=== PATIENT | female | born 1940 | race American Indian/Alaskan Native ===

== ENCOUNTER 2018-08-26 17:26 | Inpatient (IN) | payer OTHER, MEDICARE ==
--- NOTE | 2018-08-26 17:37 | Emergency Department Report ---
Blank Doc - Documentation Documentation: This is a 78-year-old female that presents with GI bleed symptoms. Stated was sent by her gastro MD. This initial assessment/diagnostic orders/clinical plan/treatment(s) is/are subject to change based on patient's health status, clinical progression and re- assessment by fellow clinical providers in the ED. Further treatment and workup at subsequent clinical providers discretion. Patient/guardians urged not to elope from the ED as their condition may be serious if not clinically assessed and managed. Initial orders include: 1- Patient sent to MAIN ED for further evaluation and treatment 2- labs 3- UA
[2018-08-26 17:56] LABS: Basophils % (Auto) 0.7 % (0.0-1.8); Eosinophils # (Auto) 0.1 K/mm3 (0.0-0.4); Eosinophils % (Auto) 2.7 % (0.0-4.3); Hematocrit 27.7 % (30.3-42.9); Hemoglobin 9.2 gm/dl (10.1-14.3); Lymphocytes # (Auto) 1.1 K/mm3 (1.2-5.4); Lymphocytes % (Auto) 23.4 % (13.4-35.0); Mean Corpuscular HGB Conc 33 % (30-34); Mean Corpuscular Volume 88 fl (79-97); Monocytes # (Auto) 0.3 K/mm3 (0.0-0.8); Monocytes % (Auto) 5.4 % (0.0-7.3); Platelet Count 261 K/mm3 (140-440); Red Blood Count 3.14 M/mm3 (3.65-5.03); Red Cell Distribution Width 12.8 % (13.2-15.2)
[2018-08-26 18:08] LABS: INR 0.95 (0.87-1.13); Partial Thromboplastin Time 25.7 Sec. (24.2-36.6)
[2018-08-26 18:10] LABS: Alanine Aminotransferase 6 units/L (7-56); Albumin 3.6 g/dL (3.9-5); BUN/Creatinine Ratio 17; Blood Urea Nitrogen 26 mg/dL (7-17); Calcium 9.1 mg/dL (8.4-10.2); Hemolysis Index 6
[2018-08-26 18:11] LABS: Bilirubin,Direct < 0.2 mg/dL (0-0.2)
[2018-08-26 19:15] LABS: Bacteria,Urine 1+ /HPF (Negative); Bilirubin,Urine NEG (Negative); Blood,Urine NEG (Negative); Color,Urine Yellow (Yellow); Hyaline Casts,Urine 1 /LPF; Mucus,Urine FEW /HPF; Protein,Urine <15 mg/dL mg/dL (Negative)
--- NOTE | 2018-08-26 20:42 | Emergency Department Report ---
ED GI Bleed HPI - General Chief complaint: GI Bleed Stated complaint: GI BLEED Time Seen by Provider: 08/26/18 17:36 Source: patient, family Mode of arrival: Ambulatory Limitations: No Limitations - History of Present Illness Initial comments: This is a 78-year-old female. The patient is not known to this provider previously. The patient is sent to the emergency room by her bulk sealer operator, Dr. Renetta Sanchez for evaluation of lower GI bleed. The patient has been bleeding for approximately 4-5 days. She is not having pain at this time. As per family, the blood is copious. She takes aspirin but no other blood thinners. Last colonoscopy was in 2004. Patient family cannot recall the results of the aforementioned study. The patient denies other complaints at this time. Patient reports that she is a [employer], and reports that she does not wants blood transfusions. MD complaint: blood streaked stool, gross hematochezia -: Gradual, days(s) Radiation: none Severity scale (0 -10): 0 Quality: painless Consistency: constant Improves with: none Worsens with: none Associated Symptoms: denies: abdominal pain, nausea, vomiting, epistaxis, fever/chills, headaches, loss of appetite, malaise, easy bruising, rash, shortness of breath, syncope, weakness - Related Data Home Medications Medication Instructions Recorded Confirmed Last Taken Donepezil HCl 5 mg PO DAILY 08/26/18 08/26/18 Unknown Memantine HCl 5 mg PO BID 08/26/18 08/26/18 Unknown Methimazole 10 mg PO DAILY 08/26/18 08/26/18 Unknown Allergies Allergy/AdvReac Type Severity Reaction Status Date / Time Iodinated Contrast- Oral and Allergy Unknown Verified 08/26/18 17:43 IV Dye NSAIDS (Non-Steroidal Allergy Unknown Verified 08/26/18 17:43 Anti-Inflamma Penicillins Allergy Unknown Verified 08/26/18 17:43 ED Review of Systems ROS: Stated complaint: GI BLEED Other details as noted in HPI Constitutional: denies: fever Eyes: denies: eye discharge ENT: denies: epistaxis Respiratory: denies: cough Cardiovascular: denies: chest pain Gastrointestinal: hematochezia Genitourinary: denies: dysuria Musculoskeletal: denies: back pain Skin: denies: lesions Neurological: denies: headache Psychiatric: denies: anxiety ED Past Medical Hx - Past Medical History Previous Medical History?: Yes Additional medical history: Dementia - Surgical History Past Surgical History?: Yes Hx Appendectomy: Yes - Social History Smoking Status: Never Smoker Substance Use Type: None - Medications Home Medications: Home Medications Medication Instructions Recorded Confirmed Last Taken Type Donepezil HCl 5 mg PO DAILY 08/26/18 08/26/18 Unknown History Memantine HCl 5 mg PO BID 08/26/18 08/26/18 Unknown History Methimazole 10 mg PO DAILY 08/26/18 08/26/18 Unknown History ED Physical Exam - General Limitations: No Limitations General appearance: alert, in no apparent distress - Head Head exam: Present: atraumatic, normocephalic - Eye Eye exam: Present: normal appearance, EOMI, other (bilateral conjunctiva noted to be pale) - ENT ENT exam: Present: normal exam, normal orophraynx, mucous membranes moist, normal external ear exam - Neck Neck exam: Present: normal inspection, full ROM. Absent: tenderness, meningismus - Respiratory Respiratory exam: Present: normal lung sounds bilaterally. Absent: respiratory distress - Cardiovascular Cardiovascular Exam: Present: regular rate, normal rhythm, normal heart sounds. Absent: bradycardia, tachycardia, irregular rhythm, systolic murmur, diastolic murmur, rubs, gallop - GI/Abdominal GI/Abdominal exam: Present: soft. Absent: distended, tenderness, guarding, r ebound, rigid, pulsatile mass - Rectal Rectal exam: Present: normal inspection, heme (+) stool, bloody stool, other (Brown stool, with blood. Chaperoned by nurse Fitz Haryd) - Extremities Exam Extremities exam: Present: normal inspection, full ROM, other (2+ pulses noted in the bilateral upper, lower extremities. Compartments soft. No long bony tenderness. The pelvis is stable.). Absent: calf tenderness - Back Exam Back exam: Present: normal inspection, full ROM. Absent: tenderness, CVA tenderness (R), paraspinal tenderness, vertebral tenderness - Neurological Exam Neurological exam: Present: alert, other (Extraocular movements intact. Tongue midline. No facial droop. Facial sensation intact to light touch in the V1, V2, V3 distribution bilaterally. 5 and 5 strength in 4 extremities.. Sensation is intact to light touch in 4 extremities.). Absent: motor sensory deficit - Psychiatric Psychiatric exam: Present: normal affect, normal mood - Skin Skin exam: Present: warm, dry, intact, normal color. Absent: rash ED Course Vital Signs 08/26/18 08/26/18 08/26/18 17:36 20:02 20:46 Temperature 98 F 97.7 F Pulse Rate 88 86 74 Respiratory 18 14 18 Rate Blood Pressure 101/51 143/73 Blood Pressure 132/79 [Right] O2 Sat by Pulse 99 99 100 Oximetry 08/26/18 08/26/18 08/26/18 21:30 21:34 22:31 Temperature Pulse Rate 66 63 93 H Respiratory 8 L 11 L 11 L Rate Blood Pressure 148/70 160/72 Blood Pressure 151/64 [Right] O2 Sat by Pulse 98 100 Oximetry ED Medical Decision Making - Lab Data Result diagrams: 08/26/18 17:43 08/26/18 17:43 Vital Signs 08/26/18 08/26/18 08/26/18 17:36 20:02 20:46 Temperature 98 F 97.7 F Pulse Rate 88 86 74 Respiratory 18 14 18 Rate Blood Pressure 101/51 143/73 Blood Pressure 132/79 [Right] O2 Sat by Pulse 99 99 100 Oximetry 08/26/18 08/26/18 08/26/18 21:30 21:34 22:31 Temperature Pulse Rate 66 63 93 H Respiratory 8 L 11 L 11 L Rate Blood Pressure 148/70 160/72 Blood Pressure 151/64 [Right] O2 Sat by Pulse 98 100 Oximetry Lab Results 08/26/18 08/26/18 08/26/18 Range/Units 17:43 17:43 17:43 WBC 4.8 (4.5-11.0) K/mm3 RBC 3.14 L (3.65-5.03) M/mm3 Hgb 9.2 L (10.1-14.3) gm/dl Hct 27.7 L (30.3-42.9) % MCV 88 (79-97) fl MCH 29 (28-32) pg MCHC 33 (30-34) % RDW 12.8 L (13.2-15.2) % Plt Count 261 (140-440) K/mm3 Lymph % (Auto) 23.4 (13.4-35.0) % [place] % (Auto) 5.4 (0.0-7.3) % Eos % (Auto) 2.7 (0.0-4.3) % Baso % (Auto) 0.7 (0.0-1.8) % Lymph # 1.1 L (1.2-5.4) K/mm3 [place] # 0.3 (0.0-0.8) K/mm3 Eos # 0.1 (0.0-0.4) K/mm3 Baso # 0.0 (0.0-0.1) K/mm3 Seg Neutrophils % 67.8 (40.0-70.0) % Seg Neutrophils # 3.3 (1.8-7.7) K/mm3 PT 13.3 (12.2-14.9) Sec. INR 0.95 (0.87-1.13) APTT 25.7 (24.2-36.6) Sec. Sodium 141 (137-145) mmol/L Potassium 4.3 (3.6-5.0) mmol/L Chloride 104.8 (98-107) mmol/L Carbon Dioxide 25 (22-30) mmol/L Anion Gap 16 mmol/L BUN 26 H (7-17) mg/dL Creatinine 1.5 H (0.7-1.2) mg/dL Estimated GFR 34 ml/min BUN/Creatinine Ratio 17 % Glucose 122 H (65-100) mg/dL Calcium 9.1 (8.4-10.2) mg/dL Total Bilirubin 0.30 (0.1-1.2) mg/dL Direct Bilirubin < 0.2 (0-0.2) mg/dL Indirect Bilirubin 0.1 mg/dL AST 10 (5-40) units/L ALT 6 L (7-56) units/L Alkaline Phosphatase 58 (35-129) units/L Total Protein 6.4 (6.3-8.2) g/dL Albumin 3.6 L (3.9-5) g/dL Albumin/Globulin Ratio 1.3 % Lipase 39 (13-60) units/L Urine Color (Yellow) Urine Turbidity (Clear) Urine pH (5.0-7.0) Ur Specific [place] (1.003-1.030) Urine Protein (Negative) mg/dL Urine Glucose (UA) (Negative) mg/dL Urine Ketones (Negative) mg/dL Urine Blood (Negative) Urine Nitrite (Negative) Urine Bilirubin (Negative) Urine Urobilinogen (<2.0) mg/dL Ur Leukocyte Esterase (Negative) Urine WBC (Auto) (0.0-6.0) /HPF Urine RBC (Auto) (0.0-6.0) /HPF U Epithel Cells (Auto) (0-13.0) /HPF Urine Bacteria (Auto) (Negative) /HPF Hyaline Casts /LPF Urine Mucus /HPF Blood Type Antibody Screen 08/26/18 08/26/18 Range/Units 17:45 18:06 WBC (4.5-11.0) K/mm3 RBC (3.65-5.03) M/mm3 Hgb (10.1-14.3) gm/dl Hct (30.3-42.9) % MCV (79-97) fl MCH (28-32) pg MCHC (30-34) % RDW (13.2-15.2) % Plt Count (140-440) K/mm3 Lymph % (Auto) (13.4-35.0) % [place] % (Auto) (0.0-7.3) % Eos % (Auto) (0.0-4.3) % Baso % (Auto) (0.0-1.8) % Lymph # (1.2-5.4) K/mm3 [place] # (0.0-0.8) K/mm3 Eos # (0.0-0.4) K/mm3 Baso # (0.0-0.1) K/mm3 Seg Neutrophils % (40.0-70.0) % Seg Neutrophils # (1.8-7.7) K/mm3 PT (12.2-14.9) Sec. INR (0.87-1.13) APTT (24.2-36.6) Sec. Sodium (137-145) mmol/L Potassium (3.6-5.0) mmol/L Chloride (98-107) mmol/L Carbon Dioxide (22-30) mmol/L Anion Gap mmol/L BUN (7-17) mg/dL Creatinine (0.7-1.2) mg/dL Estimated GFR ml/min BUN/Creatinine Ratio % Glucose (65-100) mg/dL Calcium (8.4-10.2) mg/dL Total Bilirubin (0.1-1.2) mg/dL Direct Bilirubin (0-0.2) mg/dL Indirect Bilirubin mg/dL AST (5-40) units/L ALT (7-56) units/L Alkaline Phosphatase (35-129) units/L Total Protein (6.3-8.2) g/dL Albumin (3.9-5) g/dL Albumin/Globulin Ratio % Lipase (13-60) units/L Urine Color Yellow (Yellow) Urine Turbidity Clear (Clear) Urine pH 5.0 (5.0-7.0) Ur Specific [place] 1.033 H (1.003-1.030) Urine Protein <15 mg/dl (Negative) mg/dL Urine Glucose (UA) Neg (Negative) mg/dL Urine Ketones Neg (Negative) mg/dL Urine Blood Neg (Negative) Urine Nitrite Neg (Negative) Urine Bilirubin Neg (Negative) Urine Urobilinogen 2.0 (<2.0) mg/dL Ur Leukocyte Esterase Sm (Negative) Urine WBC (Auto) 3.0 (0.0-6.0) /HPF Urine RBC (Auto) 7.0 (0.0-6.0) /HPF U Epithel Cells (Auto) 3.0 (0-13.0) /HPF Urine Bacteria (Auto) 1+ (Negative) /HPF Hyaline Casts 1 /LPF Urine Mucus Few /HPF Blood Type B POSITIVE Antibody Screen Negative - EKG Data -: EKG Interpreted by Nm EKG shows normal: sinus rhythm Rate: normal - EKG Data When compared to previous EKG there are: previous EKG unavailable 08/26/18 23:37 EKG shows a sinus rhythm, left axis deviation, left anterior fascicular block, left ventricular hypertrophy, QTC prolonged, borderline first-degree AV block. This is an abnormal EKG. The patient is not having chest pain. This is not consistent with ST elevation myocardial infarction. - Medical Decision Making Differential diagnosis, including not limited to: Diverticulosis, ang iodysplasia, malignancy, hemorrhoidal bleeding Assessment and plan: 78-year-old female hemodynamically stable with painless rectal bleeding. Found to have incidental mild renal insufficiency. May be dehydration, vasomotor nephropathy. Contacted covering bulk sealer operator for Dr Nathalie Sapp He states his group does not have privileges at this hospital, and he recommends contacting the on-call gastroenterology group for evaluation. Discussed this with our covering bulk sealer operator, Dr. Manning, and she states that she is willing to see the patient in consultation. Recommends no GoLYTELY or bowel prep at this time, as she would like to evaluate the patient. Discussed admission with the patient and family, who verbalized understanding, and who are amenable to hospitalization. The case is presented to the Hospital physician, Dr. Vail, who has accepted the patient to the medical service. Critical care attestation.: If time is entered above; I have spent that time in minutes in the direct care of this critically ill patient, excluding procedure time. ED Disposition Clinical Impression: Lower GI bleed Disposition: DC-09 OP ADMIT IP TO THIS HOSP Is pt being admited?: Yes Does the pt Need Aspirin: No Condition: Good
[2018-08-26] MEDS ORDERED: NACL 0.9% 1000 ML 1,000 ML IV ONE (21:03)
--- NOTE | 2018-08-26 22:24 | History and Physical Report ---
History of Present Illness Date of examination: 08/26/18 History of present illness: 78-year-old woman history of hypothyroidism, dementia comes emergency room with complaints of rectal bleed, 1-2 episodes a day over the last 5 days. One month ago she had similar symptoms, she saw Dr. Diaz who sent her for cardiac clearance prior to performing colonoscopy, patient was scheduled to have colonoscopy this upcoming week. No abdominal pain Review of systems Constitutional: no weight loss, chills, fever Ears, eyes, nose, mouth and throat: no nasal congestion, no nasal discharge, no sinus pressure, no vision change, no red eye. Neck: No neck pain or rigidity. Cardiovascular: no palpitations, chest pain Respiratory: no cough, shortness of breath Gastrointestinal: no abdominal pain Genitourinary : no frequency , no hematuria Musculoskeletal: no joint swelling or muscle ache Integumentary: no rash, no pruritis Neurological: no parathesias, no focal weakness Endocrine: no cold or heat intolerance, no polyuria or polydipsia Hematologic/Lymphatic: no easy bruising, no easy bleeding, no gland swelling Allergic/Immunologic: no urticaria, no angioedema. PAST MEDICAL HISTORY: hypothyroidism, dementia PAST SURGICAL HISTORY: Appendicectomy, vein removal SOCIAL HISTORY: Denies alcohol, drugs, tobacco FAMILY HISTORY: Hypertension Medications and Allergies Allergies Allergy/AdvReac Type Severity Reaction Status Date / Time Iodinated Contrast- Oral and Allergy Unknown Verified 08/26/18 17:43 IV Dye NSAIDS (Non-Steroidal Allergy Unknown Verified 08/26/18 17:43 Anti-Inflamma Penicillins Allergy Unknown Verified 08/26/18 17:43 Home Medications Medication Instructions Recorded Confirmed Last Taken Type Donepezil HCl 5 mg PO DAILY 08/26/18 08/26/18 Unknown History Memantine HCl 5 mg PO BID 08/26/18 08/26/18 Unknown History Methimazole 10 mg PO DAILY 08/26/18 08/26/18 Unknown History Exam - Physical Exam Narrative exam: General Apperance: The patient lying in bed, breathing comfortable HEENT: Normocephalic, atraumatic. Pupils equally round and reactive to light, EOMI, no sclericterus or JVD or thyromegaly or nodule. , no carotid bruit, mucous membranes moist, no exudate or erythema Heart: S1-S2, regular is rhythm Lungs: Clear to auscultation bilaterally, breathing comfortable Abdomen: Positive bowel sounds, soft, nontender, nondistended, no organomegaly Extremities: No edema cyanosis clubbing Skin: no rash, nodule, warm and dry Neuro: cranial nerves 2-12 intact, speech is fluent, motor/sensory intact - Constitutional Vitals: Temp Pulse Resp BP Pulse Ox 97.7 F 63 11 L 151/64 98 08/26/18 20:02 08/26/18 21:34 08/26/18 21:34 08/26/18 21:34 08/26/18 21:34 Results - Labs CBC & Chem 7: 08/26/18 17:43 08/26/18 17:43 Labs: Abnormal lab results 08/26/18 08/26/18 08/26/18 Range/Units 17:43 17:43 18:06 RBC 3.14 L (3.65-5.03) M/mm3 Hgb 9.2 L (10.1-14.3) gm/dl Hct 27.7 L (30.3-42.9) % RDW 12.8 L (13.2-15.2) % Lymph # 1.1 L (1.2-5.4) K/mm3 BUN 26 H (7-17) mg/dL Creatinine 1.5 H (0.7-1.2) mg/dL Glucose 122 H (65-100) mg/dL ALT 6 L (7-56) units/L Albumin 3.6 L (3.9-5) g/dL Ur Specific [place] 1.033 H (1.003-1.030) Assessment and Plan Assessment Lower GI bleed, rule out diverticular bleed Hypothyroidism Dementia Plan Admit to medicine Start IV fluids, check serial hemoglobin, and consult GI DVT prophylaxis
[2018-08-26] MEDS ORDERED: SODIUM CHLORIDE FLUSH SYRINGE 10 ML IV PRN (23:08)
[2018-08-26] MEDS ORDERED: TYLENOL PO PRN (23:08)
[2018-08-26] MEDS ORDERED: ZOFRAN IV PRN (23:08)
[2018-08-26 23:54] LABS: Hematocrit 26.1 % (30.3-42.9); Hemoglobin 9.1 gm/dl (10.1-14.3)
[2018-08-27] MEDS: NACL 0.9% 1000 ML 1,000 ML IV SCH ×3 (02:49→21:49)
[2018-08-27 02:53] LABS: Eosinophils # (Auto) 0.2 K/mm3 (0.0-0.4); Eosinophils % (Auto) 4.9 % (0.0-4.3); Hematocrit 25.3 % (30.3-42.9); Hemoglobin 8.3 gm/dl (10.1-14.3); Lymphocytes # (Auto) 1.1 K/mm3 (1.2-5.4); Lymphocytes % (Auto) 25.6 % (13.4-35.0); Mean Corpuscular HGB Conc 33 % (30-34); Mean Corpuscular Volume 88 fl (79-97); Monocytes # (Auto) 0.3 K/mm3 (0.0-0.8); Monocytes % (Auto) 8.1 % (0.0-7.3); Platelet Count 226 K/mm3 (140-440); Red Blood Count 2.86 M/mm3 (3.65-5.03); Red Cell Distribution Width 13.1 % (13.2-15.2)
[2018-08-27 03:33] LABS: Calcium 8.6 mg/dL (8.4-10.2)
[2018-08-27 07:23] LABS: Hematocrit 26.4 % (30.3-42.9); Hemoglobin 8.8 gm/dl (10.1-14.3)
[2018-08-27] MEDS: SODIUM CHLORIDE FLUSH SYRINGE 10 ML IV SCH ×2 (09:35→21:50)
[2018-08-27] MEDS ORDERED: GOLYTELY PO NR ×2 (10:00→17:00)
--- NOTE | 2018-08-27 10:22 | Gastroenterology Consultation ---
<LOBO PAIGE - Last Filed: 08/27/18 10:24> History of Present Illness - Reason for Consult Consult date: 08/27/18 GI bleed Requesting physician: ANUP AGUILAR - History of Present Illness Patent is a 78 female with PMH of hypothyroidism and dementia who was sent to ED by her laminator hand Dr. Sanchez for evaluation of rectal bleeding. This morning patient was sitting up in bed finishing breakfast w/o acute distress and son at bedside. She reports rectal bleeding with bright red blood x 5 days with bleeding being moderate in amount initially but then gradually decreased with now no further bleeding overnight or this am. Denies fever, CP, SOB, wt loss, abd pain, N/V, hematemesis, melena, diarrhea, or constipation. Takes daily ASA at home. No hx of PUD or liver disease. Patient is previously known to our service and underwent a colonoscopy in 2014 for wt loss by Dr. Veliz that showed diverticulosis throughout entire colon, recto-sigmoid polyp, and non-bleeding hemorrhoids. Past History Past Medical History: other (as per HPI) Past Surgical History: appendectomy, Other ( vein removal) Social history: denies: smoking, alcohol abuse Family history: hypertension, other (colon polyps, colon cancer?) Medications and Allergies Allergies Allergy/AdvReac Type Severity Reaction Status Date / Time Iodinated Contrast- Oral and Allergy Unknown Verified 08/26/18 17:43 IV Dye NSAIDS (Non-Steroidal Allergy Unknown Verified 08/26/18 17:43 Anti-Inflamma Penicillins Allergy Unknown Verified 08/26/18 17:43 Home Medications Medication Instructions Recorded Confirmed Last Taken Type Donepezil HCl 5 mg PO DAILY 08/26/18 08/26/18 Unknown History Memantine HCl 5 mg PO BID 08/26/18 08/26/18 Unknown History Methimazole 10 mg PO DAILY 08/26/18 08/26/18 Unknown History Active Meds: Active Medications Acetaminophen (Tylenol) 650 mg PO Q4H PRN PRN Reason: Pain MILD(1-3)/Fever >100.5/EDUARDO Sodium Chloride (Nacl 0.9% 1000 Ml) 1,000 mls @ 100 mls/hr IV DIRECT [facility] Last Admin: 08/27/18 02:49 Dose: 100 mls/hr Documented by: Ondansetron HCl (Zofran) 4 mg IV Q8H PRN PRN Reason: Nausea And Vomiting Polyethylene Glycol/Electrolytes (Golytely) 4,000 ml PO ONCE NR Stop: 08/27/18 16:00 Sodium Chloride (Sodium Chloride Flush Syringe 10 Ml) 10 ml IV BID [facility] Last Admin: 08/27/18 09:35 Dose: 10 ml Documented by: Sodium Chloride (Sodium Chloride Flush Syringe 10 Ml) 10 ml IV PRN PRN PRN Reason: LINE FLUSH medications reviewed/updated as required Review of Systems - Review of Systems All systems: negative Gastrointestinal: hematochezia Exam - Constitutional Vital Signs: Temp Pulse Resp BP Pulse Ox 98.3 F 82 11 L 139/65 95 08/27/18 08:00 08/27/18 09:30 08/27/18 09:30 08/27/18 09:30 08/27/18 09:30 General appearance: no acute distress - Respiratory Respiratory: bilateral: CTA - Cardiovascular Rhythm: regular - Gastrointestinal General gastrointestinal: Present: soft, non-tender, non-distended, normal bowel sounds - Labs CBC & Chem 7: 08/27/18 07:07 08/27/18 02:33 Lab Results: Laboratory Results - last 24 hr 08/26/18 08/26/18 08/26/18 17:43 17:43 17:43 WBC 4.8 RBC 3.14 L Hgb 9.2 L Hct 27.7 L MCV 88 MCH 29 MCHC 33 RDW 12.8 L Plt Count 261 Lymph % (Auto) 23.4 [place] % (Auto) 5.4 Eos % (Auto) 2.7 Baso % (Auto) 0.7 Lymph # 1.1 L [place] # 0.3 Eos # 0.1 Baso # 0.0 Seg Neutrophils % 67.8 Seg Neutrophils # 3.3 PT 13.3 INR 0.95 APTT 25.7 Sodium 141 Potassium 4.3 Chloride 104.8 Carbon Dioxide 25 Anion Gap 16 BUN 26 H Creatinine 1.5 H Estimated GFR 34 BUN/Creatinine Ratio 17 Glucose 122 H Calcium 9.1 Total Bilirubin 0.30 Direct Bilirubin < 0.2 Indirect Bilirubin 0.1 AST 10 ALT 6 L Alkaline Phosphatase 58 Total Protein 6.4 Albumin 3.6 L Albumin/Globulin Ratio 1.3 Lipase 39 Urine Color Urine Turbidity Urine pH Ur Specific [place] Urine Protein Urine Glucose (UA) Urine Ketones Urine Blood Urine Nitrite Urine Bilirubin Urine Urobilinogen Ur Leukocyte Esterase Urine WBC (Auto) Urine RBC (Auto) U Epithel Cells (Auto) Urine Bacteria (Auto) Hyaline Casts Urine Mucus Blood Type Antibody Screen 08/26/18 08/26/18 08/26/18 17:45 18:06 23:35 WBC RBC Hgb 9.1 L Hct 26.1 L MCV MCH MCHC RDW Plt Count Lymph % (Auto) [place] % (Auto) Eos % (Auto) Baso % (Auto) Lymph # [place] # Eos # Baso # Seg Neutrophils % Seg Neutrophils # PT INR APTT Sodium Potassium Chloride Carbon Dioxide Anion Gap BUN Creatinine Estimated GFR BUN/Creatinine Ratio Glucose Calcium Total Bilirubin Direct Bilirubin Indirect Bilirubin AST ALT Alkaline Phosphatase Total Protein Albumin Albumin/Globulin Ratio Lipase Urine Color Yellow Urine Turbidity Clear Urine pH 5.0 Ur Specific [place] 1.033 H Urine Protein <15 mg/dl Urine Glucose (UA) Neg Urine Ketones Neg Urine Blood Neg Urine Nitrite Neg Urine Bilirubin Neg Urine Urobilinogen 2.0 Ur Leukocyte Esterase Sm Urine WBC (Auto) 3.0 Urine RBC (Auto) 7.0 U Epithel Cells (Auto) 3.0 Urine Bacteria (Auto) 1+ Hyaline Casts 1 Urine Mucus Few Blood Type B POSITIVE Antibody Screen Negative 08/27/18 08/27/18 08/27/18 02:33 02:33 07:07 WBC 4.1 L RBC 2.86 L Hgb 8.3 L 8.8 L Hct 25.3 L 26.4 L MCV 88 MCH 29 MCHC 33 RDW 13.1 L Plt Count 226 Lymph % (Auto) 25.6 [place] % (Auto) 8.1 H Eos % (Auto) 4.9 H Baso % (Auto) 1.0 Lymph # 1.1 L [place] # 0.3 Eos # 0.2 Baso # 0.0 Seg Neutrophils % 60.4 Seg Neutrophils # 2.5 PT INR APTT Sodium 142 Potassium 3.9 Chloride 108.4 H Carbon Dioxide 24 Anion Gap 14 BUN 22 H Creatinine 1.2 Estimated GFR 53 BUN/Creatinine Ratio 18 Glucose 95 Calcium 8.6 Total Bilirubin Direct Bilirubin Indirect Bilirubin AST ALT Alkaline Phosphatase Total Protein Albumin Albumin/Globulin Ratio Lipase Urine Color Urine Turbidity Urine pH Ur Specific [place] Urine Protein Urine Glucose (UA) Urine Ketones Urine Blood Urine Nitrite Urine Bilirubin Urine Urobilinogen Ur Leukocyte Esterase Urine WBC (Auto) Urine RBC (Auto) U Epithel Cells (Auto) Urine Bacteria (Auto) Hyaline Casts Urine Mucus Blood Type Antibody Screen Assessment and Plan 1.hematochezia -INR 0.95 -H/H 8.8/26.4-trending down -continue to monitor H/H transfuse as needed -hold blood thinning medications -patient reports acute onset of rectal bleeding with a moderate amount of bright red blood that has gradually decreased in amount over the past 5 days. No active signs of bleeding overnight or this am. No abd pain, melena, or hematemesis. -last colonoscopy in [address] Veliz showed diverticulosis throughout entire colon, recto-sigmoid polyp, and non-bleeding hemorrhoids. -etiology-most likely diverticular in nature -will schedule for colonoscopy tomorrow for further evaluation to r/o other causes -clear liquids today, then NPO after MN -continue PPI and supportive care -if overt bleeding develops, recommend stat CTA vs bleeding scan -will follow <SIDDHARTH MANRIQUEZ - Last Filed: 08/27/18 17:05> Medications and Allergies Active Meds: Active Medications Acetaminophen (Tylenol) 650 mg PO Q4H PRN PRN Reason: Pain MILD(1-3)/Fever >100.5/EDUARDO Sodium Chloride (Nacl 0.9% 1000 Ml) 1,000 mls @ 100 mls/hr IV DIRECT [facility] Last Admin: 08/27/18 11:47 Dose: 100 mls/hr Documented by: Ondansetron HCl (Zofran) 4 mg IV Q8H PRN PRN Reason: Nausea And Vomiting Polyethylene Glycol/Electrolytes (Golytely) 4,000 ml PO ONCE NR Stop: 08/27/18 21:00 Last Admin: 08/27/18 16:58 Dose: 4,000 ml Documented by: Sodium Chloride (Sodium Chloride Flush Syringe 10 Ml) 10 ml IV BID [facility] Last Admin: 08/27/18 09:35 Dose: 10 ml Documented by: Sodium Chloride (Sodium Chloride Flush Syringe 10 Ml) 10 ml IV PRN PRN PRN Reason: LINE FLUSH Exam - Constitutional Vital Signs: Temp Pulse Resp BP Pulse Ox 98.2 F 56 L 16 139/52 98 08/27/18 16:00 08/27/18 16:00 08/27/18 16:00 08/27/18 13:50 08/27/18 16:00 - Labs CBC & Chem 7: 08/27/18 10:59 08/27/18 02:33 Lab Results: Laboratory Results - last 24 hr 08/26/18 08/26/18 08/26/18 17:43 17:43 17:43 WBC 4.8 RBC 3.14 L Hgb 9.2 L Hct 27.7 L MCV 88 MCH 29 MCHC 33 RDW 12.8 L Plt Count 261 Lymph % (Auto) 23.4 [place] % (Auto) 5.4 Eos % (Auto) 2.7 Baso % (Auto) 0.7 Lymph # 1.1 L [place] # 0.3 Eos # 0.1 Baso # 0.0 Seg Neutrophils % 67.8 Seg Neutrophils # 3.3 PT 13.3 INR 0.95 APTT 25.7 Sodium 141 Potassium 4.3 Chloride 104.8 Carbon Dioxide 25 Anion Gap 16 BUN 26 H Creatinine 1.5 H Estimated GFR 34 BUN/Creatinine Ratio 17 Glucose 122 H Calcium 9.1 Total Bilirubin 0.30 Direct Bilirubin < 0.2 Indirect Bilirubin 0.1 AST 10 ALT 6 L Alkaline Phosphatase 58 Total Protein 6.4 Albumin 3.6 L Albumin/Globulin Ratio 1.3 Lipase 39 Urine Color Urine Turbidity Urine pH Ur Specific [place] Urine Protein Urine Glucose (UA) Urine Ketones Urine Blood Urine Nitrite Urine Bilirubin Urine Urobilinogen Ur Leukocyte Esterase Urine WBC (Auto) Urine RBC (Auto) U Epithel Cells (Auto) Urine Bacteria (Auto) Hyaline Casts Urine Mucus Blood Type Antibody Screen 08/26/18 08/26/18 08/26/18 17:45 18:06 23:35 WBC RBC Hgb 9.1 L Hct 26.1 L MCV MCH MCHC RDW Plt Count Lymph % (Auto) [place] % (Auto) Eos % (Auto) Baso % (Auto) Lymph # [place] # Eos # Baso # Seg Neutrophils % Seg Neutrophils # PT INR APTT Sodium Potassium Chloride Carbon Dioxide Anion Gap BUN Creatinine Estimated GFR BUN/Creatinine Ratio Glucose Calcium Total Bilirubin Direct Bilirubin Indirect Bilirubin AST ALT Alkaline Phosphatase Total Protein Albumin Albumin/Globulin Ratio Lipase Urine Color Yellow Urine Turbidity Clear Urine pH 5.0 Ur Specific [place] 1.033 H Urine Protein <15 mg/dl Urine Glucose (UA) Neg Urine Ketones Neg Urine Blood Neg Urine Nitrite Neg Urine Bilirubin Neg Urine Urobilinogen 2.0 Ur Leukocyte Esterase Sm Urine WBC (Auto) 3.0 Urine RBC (Auto) 7.0 U Epithel Cells (Auto) 3.0 Urine Bacteria (Auto) 1+ Hyaline Casts 1 Urine Mucus Few Blood Type B POSITIVE Antibody Screen Negative 08/27/18 08/27/18 08/27/18 02:33 02:33 07:07 WBC 4.1 L RBC 2.86 L Hgb 8.3 L 8.8 L Hct 25.3 L 26.4 L MCV 88 MCH 29 MCHC 33 RDW 13.1 L Plt Count 226 Lymph % (Auto) 25.6 [place] % (Auto) 8.1 H Eos % (Auto) 4.9 H Baso % (Auto) 1.0 Lymph # 1.1 L [place] # 0.3 Eos # 0.2 Baso # 0.0 Seg Neutrophils % 60.4 Seg Neutrophils # 2.5 PT INR APTT Sodium 142 Potassium 3.9 Chloride 108.4 H Carbon Dioxide 24 Anion Gap 14 BUN 22 H Creatinine 1.2 Estimated GFR 53 BUN/Creatinine Ratio 18 Glucose 95 Calcium 8.6 Total Bilirubin Direct Bilirubin Indirect Bilirubin AST ALT Alkaline Phosphatase Total Protein Albumin Albumin/Globulin Ratio Lipase Urine Color Urine Turbidity Urine pH Ur Specific [place] Urine Protein Urine Glucose (UA) Urine Ketones Urine Blood Urine Nitrite Urine Bilirubin Urine Urobilinogen Ur Leukocyte Esterase Urine WBC (Auto) Urine RBC (Auto) U Epithel Cells (Auto) Urine Bacteria (Auto) Hyaline Casts Urine Mucus Blood Type Antibody Screen 08/27/18 10:59 WBC RBC Hgb 9.1 L Hct 27.2 L MCV MCH MCHC RDW Plt Count Lymph % (Auto) [place] % (Auto) Eos % (Auto) Baso % (Auto) Lymph # [place] # Eos # Baso # Seg Neutrophils % Seg Neutrophils # PT INR APTT Sodium Potassium Chloride Carbon Dioxide Anion Gap BUN Creatinine Estimated GFR BUN/Creatinine Ratio Glucose Calcium Total Bilirubin Direct Bilirubin Indirect Bilirubin AST ALT Alkaline Phosphatase Total Protein Albumin Albumin/Globulin Ratio Lipase Urine Color Urine Turbidity Urine pH Ur Specific [place] Urine Protein Urine Glucose (UA) Urine Ketones Urine Blood Urine Nitrite Urine Bilirubin Urine Urobilinogen Ur Leukocyte Esterase Urine WBC (Auto) Urine RBC (Auto) U Epithel Cells (Auto) Urine Bacteria (Auto) Hyaline Casts Urine Mucus Blood Type Antibody Screen Assessment and Plan Patient seen and examined. Agree with note above. Will plan for colonoscopy tomorrow. rest as above.
[2018-08-27 11:50] LABS: Hematocrit 27.2 % (30.3-42.9); Hemoglobin 9.1 gm/dl (10.1-14.3)
--- NOTE | 2018-08-27 16:49 | Progress Note ---
Assessment and Plan Assessment and plan: 78-year-old woman history of hypothyroidism, dementia comes emergency room with complaints of rectal bleed, 1-2 episodes a day over the last 5 days. One month ago she had similar symptoms, she saw Dr. Diaz who sent her for cardiac clearance prior to performing colonoscopy, patient was scheduled to have colonoscopy this upcoming week. No abdominal pain. last colonoscopy in [address] Veliz showed diverticulosis throughout entire colon, recto-sigmoid polyp, and non-bleeding hemorrhoids. Lower GI bleed, rule out diverticular bleed Hypothyroidism Dementia Plan Continue supportive care at [facility] GI input noted Continue IV fluids, PPI, check serial hemoglobin, and hold all anticoauglants and antiplatelet NPO after midnight and per GI-if overt bleeding develops, recommend stat CTA vs bleeding scan DVT prophylaxis Plan discussed with patient and family History Interval history: Pateint seen and examined, resting comfortable in no acute distress. no further bleed noted. family at bedside Hospitalist Physical - Constitutional Vitals: Temp Pulse Resp BP Pulse Ox 98.2 F 56 L 16 139/52 98 08/27/18 16:00 08/27/18 16:00 08/27/18 16:00 08/27/18 13:50 08/27/18 16:00 General appearance: Present: no acute distress, well-nourished - EENT Eyes: Present: PERRL, EOM intact ENT: hearing intact, clear oral mucosa, dentition normal - Neck Neck: Present: supple, normal ROM - Respiratory Respiratory effort: normal Respiratory: bilateral: CTA - Cardiovascular Rhythm: regular Heart Sounds: Present: S1 & S2. Absent: systolic murmur, diastolic murmur - Extremities Extremities: no ischemia, pulses intact, pulses symmetrical, No edema, normal temperature, normal color, Full ROM Peripheral Pulses: within normal limits - Abdominal General gastrointestinal: soft, non-tender, non-distended, normal bowel sounds - Integumentary Integumentary: Present: clear, warm, dry, normal turgor - Psychiatric Psychiatric: appropriate mood/affect, intact judgment & insight, cooperative - Neurologic Neurologic: CNII-XII intact, moves all extremities - Allied Health Allied health notes reviewed: nursing Results - Labs CBC & Chem 7: 08/28/18 05:14 08/28/18 05:14 Labs: Laboratory Last Values WBC 4.1 K/mm3 (4.5-11.0) L 08/27/18 02:33 RBC 2.86 M/mm3 (3.65-5.03) L 08/27/18 02:33 Hgb 9.1 gm/dl (10.1-14.3) L 08/27/18 10:59 Hct 27.2 % (30.3-42.9) L 08/27/18 10:59 MCV 88 fl (79-97) 08/27/18 02:33 MCH 29 pg (28-32) 08/27/18 02:33 MCHC 33 % (30-34) 08/27/18 02:33 RDW 13.1 % (13.2-15.2) L 08/27/18 02:33 Plt Count 226 K/mm3 (140-440) 08/27/18 02:33 Lymph % (Auto) 25.6 % (13.4-35.0) 08/27/18 02:33 [place] % (Auto) 8.1 % (0.0-7.3) H 08/27/18 02:33 Eos % (Auto) 4.9 % (0.0-4.3) H 08/27/18 02:33 Baso % (Auto) 1.0 % (0.0-1.8) 08/27/18 02:33 Lymph # 1.1 K/mm3 (1.2-5.4) L 08/27/18 02:33 [place] # 0.3 K/mm3 (0.0-0.8) 08/27/18 02:33 Eos # 0.2 K/mm3 (0.0-0.4) 08/27/18 02:33 Baso # 0.0 K/mm3 (0.0-0.1) 08/27/18 02:33 Seg Neutrophils % 60.4 % (40.0-70.0) 08/27/18 02:33 Seg Neutrophils # 2.5 K/mm3 (1.8-7.7) 08/27/18 02:33 PT 13.3 Sec. (12.2-14.9) 08/26/18 17:43 INR 0.95 (0.87-1.13) 08/26/18 17:43 APTT 25.7 Sec. (24.2-36.6) 08/26/18 17:43 Sodium 142 mmol/L (137-145) 08/27/18 02:33 Potassium 3.9 mmol/L (3.6-5.0) 08/27/18 02:33 Chloride 108.4 mmol/L (98-107) H 08/27/18 02:33 Carbon Dioxide 24 mmol/L (22-30) 08/27/18 02:33 Anion Gap 14 mmol/L 08/27/18 02:33 BUN 22 mg/dL (7-17) H 08/27/18 02:33 Creatinine 1.2 mg/dL (0.7-1.2) 08/27/18 02:33 Estimated GFR 53 ml/min 08/27/18 02:33 BUN/Creatinine Ratio 18 % 08/27/18 02:33 Glucose 95 mg/dL (65-100) 08/27/18 02:33 Calcium 8.6 mg/dL (8.4-10.2) 08/27/18 02:33 Total Bilirubin 0.30 mg/dL (0.1-1.2) 08/26/18 17:43 Direct Bilirubin < 0.2 mg/dL (0-0.2) 08/26/18 17:43 Indirect Bilirubin 0.1 mg/dL 08/26/18 17:43 AST 10 units/L (5-40) 08/26/18 17:43 ALT 6 units/L (7-56) L 08/26/18 17:43 Alkaline Phosphatase 58 units/L (35-129) 08/26/18 17:43 Total Protein 6.4 g/dL (6.3-8.2) 08/26/18 17:43 Albumin 3.6 g/dL (3.9-5) L 08/26/18 17:43 Albumin/Globulin Ratio 1.3 % 08/26/18 17:43 Lipase 39 units/L (13-60) 08/26/18 17:43 Urine Color Yellow (Yellow) 08/26/18 18:06 Urine Turbidity Clear (Clear) 08/26/18 18:06 Urine pH 5.0 (5.0-7.0) 08/26/18 18:06 Ur Specific [place] 1.033 (1.003-1.030) H 08/26/18 18:06 Urine Protein <15 mg/dl mg/dL (Negative) 08/26/18 18:06 Urine Glucose (UA) Neg mg/dL (Negative) 08/26/18 18:06 Urine Ketones Neg mg/dL (Negative) 08/26/18 18:06 Urine Blood Neg (Negative) 08/26/18 18:06 Urine Nitrite Neg (Negative) 08/26/18 18:06 Urine Bilirubin Neg (Negative) 08/26/18 18:06 Urine Urobilinogen 2.0 mg/dL (<2.0) 08/26/18 18:06 Ur Leukocyte Esterase Sm (Negative) 08/26/18 18:06 Urine WBC (Auto) 3.0 /HPF (0.0-6.0) 08/26/18 18:06 Urine RBC (Auto) 7.0 /HPF (0.0-6.0) 08/26/18 18:06 U Epithel Cells (Auto) 3.0 /HPF (0-13.0) 08/26/18 18:06 Urine Bacteria (Auto) 1+ /HPF (Negative) 08/26/18 18:06 Hyaline Casts 1 /LPF 08/26/18 18:06 Urine Mucus Few /HPF 08/26/18 18:06 Blood Type B POSITIVE 08/26/18 17:45 Antibody Screen Negative 08/26/18 17:45 Active Medications - Current Medications Current Medications: Generic Name Dose Route Start Last Admin Trade Name Freq PRN Reason Stop Dose Admin Acetaminophen 650 mg 08/26/18 23:08 Tylenol PO Q4H PRN Pain MILD(1-3)/Fever >100.5/EDUARDO Sodium Chloride 1,000 mls @ 100 mls/hr 08/26/18 23:45 08/27/18 11:47 Nacl 0.9% 1000 Ml IV 100 mls/hr DIRECT [facility] Administration Ondansetron HCl 4 mg 08/26/18 23:08 Zofran IV Q8H PRN Nausea And Vomiting Sodium Chloride 10 ml 08/27/18 10:00 08/27/18 09:35 Sodium Chloride Flush Syringe 10 Ml IV 10 ml BID WO[facility] Administration Sodium Chloride 10 ml 08/26/18 23:08 Sodium Chloride Flush Syringe 10 Ml IV PRN PRN LINE FLUSH
[2018-08-28 05:53] LABS: Hematocrit 27.7 % (30.3-42.9); Hemoglobin 9.2 gm/dl (10.1-14.3); Mean Corpuscular HGB Conc 33 % (30-34); Mean Corpuscular Volume 88 fl (79-97); Platelet Count 263 K/mm3 (140-440); Red Blood Count 3.16 M/mm3 (3.65-5.03); Red Cell Distribution Width 12.4 % (13.2-15.2)
[2018-08-28 06:16] LABS: BUN/Creatinine Ratio 11; Blood Urea Nitrogen 9 mg/dL (7-17); Calcium 8.8 mg/dL (8.4-10.2); Hemolysis Index 0
[2018-08-28] MEDS ORDERED: XYLOCAINE 2% INFILTRATI ONE (10:31)
[2018-08-28] MEDS ORDERED: DIPRIVAN 10 MG/ML IV ONE (10:31)
[2018-08-28] MEDS ORDERED: NACL 0.9% 1000 ML 1,000 ML IV SCH (11:00)
--- NOTE | 2018-08-28 11:04 | Operative Report ---
Operative Report Operative Report: Colonoscopy Procedure Note Date of procedure: 08/28/2018 Endoscopist: Attila Hanley Pre-op diagnosis: GI bleed Post-op diagnosis: Mcpherson-diverticulosis, internal hemorrhoids, colon polyps Anesthesia: MAC Complications: No immediate complications Estimated blood loss: minimal Procedure: After consent was obtained, the patient was placed in the left lateral decubitus position. The fujinon colonoscope was inserted into the patient's rectum under direct vision, and advanced to the cecum without difficulty. The patient tolerated the procedure well. The views of the mucosa were fair. The quality of prep was fair. The patient's vital signs were monitored continuously throughout the procedure. Findings: There were numerous diverticula throughout the colon. No blood was seen during the entire procedure (semi-liquid brown stool throughout the colon). there were a couple polyps that were not removed due to recent bleeding. Internal hemorrhoids were visualized on retroflexion view. Impression: 1. Mcpherson-diverticulosis 2. Internal hemorrhoids 3. Colon polyps - not removed due to recent bleeding Recommendations: -okay to restart diet -can be discharged today from gi stand point if no further bleeding -should have repeat colonoscopy in 3-6 months for polypectomy of unremoved polyps Will sign off, please call as needed or with questions. Follow-up with patient's GI physician in 2-3 weeks.
--- NOTE | 2018-08-28 11:11 | Anesthesia Day of Surgery ---
Anesthesia Day of Surgery - Day of Surgery Patient Examined: Yes Patient H&P Reviewed: Yes Patient is NPO: Yes Beta Blockers: No
--- NOTE | 2018-08-28 11:12 | Anesthesia Consultation ---
Anesthesia Consult and Med Hx Date of service: 08/28/18 - Airway Anesthetic Teeth Evaluation: Good, Partials ROM Head & Neck: Adequate Mental/Hyoid Distance: Adequate Mallampati Class: Class II Intubation Access Assessment: Probably Good - Pulmonary Exam CTA: Yes - Cardiac Exam Cardiac Exam: No Murmur - Pre-Operative Health Status ASA Pre-Surgery Classification: ASA3 Proposed Anesthetic Plan: MAC - Pulmonary Hx Asthma: Yes - Central Nervous System Hx Psychiatric Problems: Yes (dementia )
--- NOTE | 2018-08-28 12:01 | Discharge Summary ---
Providers - Providers Date of Admission: 08/26/18 22:22 Attending physician: PETE FERNANDEZ MD 08/26/18 21:02 Consult to Physician [CONS] Urgent Comment: Consulting Provider: EDUARDO MAHER Physician Instructions: Reason For Exam: gi bleed` 08/26/18 21:15 Consult to Physician [CONS] Urgent Comment: Dr. Santana spoke with Dr. Manning @ [phone] Consulting Provider: JORDON MOLINA Physician Instructions: Reason For Exam: gi bleed Primary care physician: EDUARDO MAHER Hospitalization Reason for admission: gi bleed Condition: Good Hospital course: 78-year-old woman history of hypothyroidism, dementia comes emergency room with complaints of rectal bleed, 1-2 episodes a day over the last 5 days. One month ago she had similar symptoms, she saw Dr. Diaz who sent her for cardiac clearance prior to performing colonoscopy, patient was scheduled to have colonoscopy this upcoming week. No abdominal pain. last colonoscopy in [address] Veliz showed diverticulosis throughout entire colon, recto-sigmoid polyp, and non-bleeding hemorrhoids. patient underwent panendoscopy which showed hi diverticulosis and internal hemorrhoids, also colon polyps which was not recomed due to bleeding. the patient is to have repeat colonoscopy in 3-6 months for polypectomy of unremoved polyps. Lower GI bleed, rule out diverticular bleed Internal hemorrhoids Colon polyps hi-diverticulosis Hypothyroidism Dementia ANEMIA SECONDARY TO GI BLEED Disposition: [id number] HOME UNDER HOME [facility] Time spent for discharge: 35 mins Core Measure Documentation - Palliative Care Palliative Care/ Comfort Measures: Not Applicable - Core Measures Any of the following diagnoses?: none Exam - Physical Exam Narrative exam: General appearance: Present: no acute distress, well-nourished - EENT Eyes: Present: PERRL, EOM intact ENT: hearing intact, clear oral mucosa, dentition normal - Neck Neck: Present: supple, normal ROM - Respiratory Respiratory effort: normal Respiratory: bilateral: CTA - Cardiovascular Rhythm: regular Heart Sounds: Present: S1 & S2. Absent: systolic murmur, diastolic murmur - Extremities Extremities: no ischemia, pulses intact, pulses symmetrical, No edema, normal temperature, normal color, Full ROM Peripheral Pulses: within normal limits - Abdominal General gastrointestinal: soft, non-tender, non-distended, normal bowel sounds - Integumentary Integumentary: Present: clear, warm, dry, normal turgor - Psychiatric Psychiatric: appropriate mood/affect, intact judgment & insight, cooperative - Neurologic Neurologic: CNII-XII intact, moves all extremities - Allied Health Allied health notes reviewed: nursing - Constitutional Vitals: Temp Pulse Resp BP Pulse Ox 97.4 F L 89 16 142/77 95 08/28/18 10:19 08/28/18 10:19 08/28/18 10:19 08/28/18 10:08/28/18 10:19 Plan Activity: advance as tolerated, fall precautions Diet: low fat Special Instructions: record daily weights, record daily BP diary Additional Instructions: AVOID ASPIRIN TILL CLEARED BY HOT DOG VENDER Follow up with: EDUARDO MAHER MD [Primary Care Provider] - 3-5 Days SIDDHARTH MANRIQUEZ MD [Staff Physician] - 7 Days Forms: Accompanied Note
[2018-08-28] MEDS: SODIUM CHLORIDE FLUSH SYRINGE 10 ML IV SCH (12:37)
[2018-08-28 15:01] VITALS: BP 142/76
== END 2018-08-28 13:15 | disposition home health service (06) | DRG 379 ==
LOC: ED 17:26 → IMCU 22:22
PROVIDERS: ADMIT Internal Medicine; ATTEND Internal Medicine
PROC: 0DJD8ZZ Inspection of Lower Intestinal Tract, Via Natural or Artificial Opening Endoscopic (ICD-10-PCS; principal; 2018-08-28)
DX: K57.31 Diverticulosis of large intestine without perforation or abscess with bleeding (principal); F03.90 Unspecified dementia, unspecified severity, without behavioral disturbance, psychotic disturbance, mood disturbance, and anxiety; J45.909 Unspecified asthma, uncomplicated; K63.5 Polyp of colon; K64.8 Other hemorrhoids; E03.9 Hypothyroidism, unspecified; Z82.49 Family history of ischemic heart disease and other diseases of the circulatory system; Z90.49 Acquired absence of other specified parts of digestive tract; Z88.0 Allergy status to penicillin; Z88.8 Allergy status to other drugs, medicaments and biological substances; Z91.041 Radiographic dye allergy status; Z80.0 Family history of malignant neoplasm of digestive organs
CPT/HCPCS: 36415; 80048; 80076; 81001; 82271; 83690; 85014; 85018; 85025; 85027; 85610; 85730; 86850; 86900; 86901; 93005; 93010; 99285; G0378; J2405; J2704; J7030